=== PATIENT | female | born 1975 | race Caucasian/White ===

== ENCOUNTER 2016-03-11 07:26 | Day surgery (SDC) | payer OTHER ==
[~2016-03-11] VITALS: Ht 167.6 cm; Wt 68.0 kg
[~2016-03-11 07:26] MED LIST: HYDROCODONE-APA1 TAB PO; LEVAQUIN500 MG PO
[2016-03-11 08:28] VITALS: BP 119/61; Ht 167.6 cm; Wt 68.0 kg
[2016-03-11 08:49] LABS: HCG URINE NEGATIVE (NEGATIVE)
[2016-03-11 09:31] LABS: HEMATOCRIT 36.7 % (36.0-48.0); HEMOGLOBIN 12.2 g/dL (12-16); MCH 30.4 pg (26.0-34.0); MCHC 33.2 g/dL (31.0-37.0); MCV 91.5 fL (80.0-100.0); PLATELET COUNT 447 10x3/uL (130-400); RBC 4.01 10x6/uL (4.00-5.40); RDW 19.1 % (11.5-14.5)
[2016-03-11 09:41] LABS: APPEARANCE HAZY (CLEAR); BACTERIA MODERATE /hpf (NONE SEEN); BILIRUBIN NEGATIVE (NEGATIVE); COLOR YELLOW (YELLOW); EPITHELIAL CELLS 0-5 /hpf (0-5); GLUCOSE NEGATIVE (NEGATIVE); KETONE NEGATIVE (NEGATIVE); LEUKOCYTE ESTERASE NEGATIVE (NEGATIVE); MUCUS >1+ /lpf (NONE SEEN); NITRITE NEGATIVE (NEGATIVE); PROTEIN NEGATIVE (NEGATIVE); RED CELLS - URINE 0-5 /hpf (0-5); SPECIFIC GRAVITY 1.015 (1.005-1.020); UROBILINOGEN NORMAL (NORMAL); WHITE CELLS - URINE RARE /hpf (0-5)
--- NOTE | 2016-03-11 09:56 | NUR ---
DR ASENCIO NOTIFIED OF [facility], NEW ORDERS RECEIVED.
[2016-03-11 10:18] LABS: BASOPHILS 4 % (0.0-2.0); LYMPHOCYTES 7 % (15-50); MONOCYTES 11 % (2-11); NEUTROPHILS 17 % (40-80); PLATELET ESTIMATE INCREASED
[2016-03-11 10:19] LABS: ANISOCYTOSIS 1+; POLYCHROMASIA OCC; ROULEAUX OCC
[2016-03-11 10:30] LABS: APTT 25.9 SECONDS (22.8-39.4); INR 1.07 (0.85-1.17); PROTIME 13.8 SECONDS (11.6-15.0)
[2016-03-11 10:42] LABS: ALBUMIN 5.2 g/dL (3.4-5.0); BILIRUBIN - DIRECT 0.11 mg/dL (0.00-0.30); BILIRUBIN - INDIRECT 0.35 mg/dL (0.00-1.00); BILIRUBIN - TOTAL 0.46 mg/dL (0.2-1.3); CALCIUM 9.8 mg/dL (8.5-10.1); CARBON DIOXIDE 23.8 mmol/L (21.0-32.0); CREATININE - SERUM 1.1 mg/dL (0.6-1.3); POTASSIUM - SERUM 3.8 mmol/L (3.5-5.1); PROTEIN - SERUM 8.3 g/dL (6.4-8.2); T4 THYROXIN - FREE 1.38 ng/dL (0.76-1.46); THYROID STIMULATING HORMONE 1.54 uIU/mL (0.36-3.74)
--- NOTE | 2016-03-11 11:17 | NUR ---
1015 DR ASENCIO HAS SPOKEN WITH PT, PROCEDURE CANCELLED DUE TO ABNOMAL LAB. PT VERBALIZES UNDERSTANDING. DENIES C/O AT THIS TIME. 1100 PT'S MOTHER HERE TO PICK HER UP, PT AND MOTHER, DR GONGORA, ARE GOING TO APPOINTMENT AT DR GREEN' OFFICE. PT DC'D TO MOTHER'S CARE. ESCORTED TO PRIVATE AUTO VIA WC BY NURSE WITH DR GONGORA DRIVING HER TO DR HICKS'S OFFICE. PT DENIES C/O AT THIS TIME.
--- NOTE | 2016-03-22 13:59 | HP ---
PATIENT: AMY BELTRAN MEDICAL RECORD: [id number] ACCOUNT: [id number] LOCATION:D.[facility] : 77 ADMISSION DATE: 03/11/16 HISTORY AND PHYSICAL EXAMINATION Preoperative history and physical HISTORY OF PRESENT ILLNESS: Amy is a 41-year-old female. She has been having problems for several months with pressure sinus pain and then on her antibiotics repeatedly. She has been found to have an opacified left maxillary sinus. She is being admitted for endoscopic sinus surgery. PAST MEDICAL HISTORY: Otherwise negative. PAST SURGICAL HISTORY: times 5. CURRENT MEDICATIONS: Levaquin. ALLERGIES: PENICILLIN. PHYSICAL EXAMINATION: GENERAL: She is healthy-appearing. FACE: Normal and symmetric. No lesions. EYES: Sclerae and conjunctivae are normal. EARS: Canals and TMs are normal. NOSE: No masses, polyps, or drainage. ORAL CAVITY AND OROPHARYNX: Tongue protrudes to the midline. Palate is normal. Pharyngeal mucosa is normal. NECK: No masses or adenopathy. Cranial nerves are normal. CHEST: Clear. CARDIOVASCULAR: Regular rate and rhythm. No murmur. EXTREMITIES: Normal. IMPRESSION: Headache, sinus pressure and chronic sinus and tooth pain with sinusitis on CT. CT shows complete opacification of the left maxillary sinus and ostiomeatal complex on that side, some expansion of the maxillary sinus into the nasal cavity as well. Chronic left maxillary sinusitis. Solitary sinus involved, so dental infection, fungal sinusitis mass, things like that after to be considered as well. She is being admitted for left endoscopic maxillary antrostomy. TRANSINT:[id number] Voice Confirmation ID: [id number] DOCUMENT ID: [id number] JERMAINE ASENCIO MD at 1359 CC: [id number] DICTATION DATE: 03/08/16 0937 DAIRY HUSBANDRY TEACHER: 03/08/16 1248 [facility] 03/11/16 [place] [id number] [place] [id number]
== END 2016-03-11 11:00 | disposition home or self-care (01) ==
LOC: D.OPS 07:26 → D.PAN 09:45 → D.OPS 10:45
PROVIDERS: Anesthesiology; Otolaryngology
DX: J32.0 Chronic maxillary sinusitis (principal); Z01.810 Encounter for preprocedural cardiovascular examination; Z01.811 Encounter for preprocedural respiratory examination; Z01.812 Encounter for preprocedural laboratory examination; Z53.9 Procedure and treatment not carried out, unspecified reason